=== PATIENT | male | born 1940 | race Hispanic/Latino ===

== ENCOUNTER 2023-04-30 10:03 | Observation (INO) | payer MEDICARE ==
[2023-04-30 10:43] LABS: #Eosinphils 0.1 thou/uL (0.0-0.7); #Monocytes 0.7 thou/uL (0.11-0.59); #Neutrophils 3.5 thou/uL (1.40-6.50); %Basophils 0.6 % (0.0-1.0); %Lymphocytes 32.9 % (21.0-51.0); %Monocytes 10.1 % (0.0-10.0); %Neutrophils 54.1 % (42.0-75.0); Hematocrit 44.3 % (42.0-52.0); Hemoglobin 14.9 g/dL (14.0-18.0); Mean Corpuscular HGB CONC 33.6 g/dL (32.0-36.0); Mean Corpuscular Hemoglobin 29.2 pg (27.0-31.0); Mean Corpuscular Volume 86.7 fl (78.0-98.0); Mean Platelet Volume 10.7 fL (7.4-10.4); Platelet Count 220 10x3/uL (130-400); RBC Distribution Width 13.2 % (11.5-14.5); Red Blood Cell (RBC) Count 5.11 mill/uL (4.70-6.10); White Blood Cell (WBC) Count 6.4 10x3/uL (4.8-10.8)
[2023-04-30] MEDS ORDERED: Ondansetron PF 4 MG/2 ML Vial ONE (10:53)
[2023-04-30] MEDS ORDERED: Meclizine HCl 25 MG TAB ONE (10:53)
[2023-04-30 11:09] LABS: ALT (SGPT) 18 U/L (8-55); AST (SGOT) 18 U/L (5-34); Albumin 4.1 g/dL (3.4-4.8); Alkaline Phosphatase 76 U/L (40-110); Anion Gap 11 mmol/L (10-20); BUN (Urea Nitrogen) 13 mg/dL (8.4-25.7); Bilirubin, Total 0.5 mg/dL (0.2-1.2); Calc. Creatinine Clearance 0 mL/min (70-130); Calcium 8.9 mg/dL (7.8-10.44); Carbon Dioxide 24 mmol/L (23-31); Chloride 105 mmol/L (98-107); Estimated GFR 88; Globulin 2.9 g/dL (2.4-3.5); Glucose 97 mg/dL (83-110); Potassium 3.8 mmol/L (3.5-5.1); Sodium 136 mmol/L (136-145)
[2023-04-30] MEDS ORDERED: Aspirin 325 MG TAB ONE (12:11)
[2023-04-30 12:23] LABS: SARS-CoV-2 NAA Rapid Test Not Detected (NotDetected)
[2023-04-30] MEDS ORDERED: diphenhydrAMINE 50 MG/ML VIAL ONE (14:18)
[2023-04-30] MEDS ORDERED: Ketorolac Tromethamine 30 MG (1 mL) VIAL ONE (14:18)
[2023-04-30] MEDS ORDERED: Acetaminophen 325 MG TAB PO PRN (15:55)
[2023-04-30] MEDS ORDERED: Ondansetron ODT 4 MG TAB PO PRN (15:55)
[2023-04-30] MEDS ORDERED: Loratadine 10 MG TAB PO PRN (15:59)
[2023-04-30] MEDS ORDERED: Meclizine HCl 12.5 MG TAB PO PRN (16:09)
[2023-04-30 18:22] VITALS: BMI 34.2
[2023-04-30] MEDS: guaiFENesin ER 600 MG TAB PO SCH (21:12)
[2023-05-01 05:38] LABS: #Basophils 0.1 thou/uL (0.0-0.2); #Eosinphils 0.2 thou/uL (0.0-0.7); #Monocytes 0.6 thou/uL (0.11-0.59); #Neutrophils 1.9 thou/uL (1.40-6.50); %Basophils 1.1 % (0.0-1.0); %Eosinophils 4.6 % (0.0-10.0); %Lymphocytes 43.3 % (21.0-51.0); %Monocytes 11.6 % (0.0-10.0); Hematocrit 41.5 % (42.0-52.0); Hemoglobin 13.8 g/dL (14.0-18.0); Mean Corpuscular HGB CONC 33.3 g/dL (32.0-36.0); Mean Corpuscular Hemoglobin 29.5 pg (27.0-31.0); Mean Corpuscular Volume 88.7 fl (78.0-98.0); Mean Platelet Volume 10.8 fL (7.4-10.4); Platelet Count 203 10x3/uL (130-400); RBC Distribution Width 13.4 % (11.5-14.5); Red Blood Cell (RBC) Count 4.68 mill/uL (4.70-6.10); White Blood Cell (WBC) Count 4.8 10x3/uL (4.8-10.8)
[2023-05-01 06:07] LABS: Anion Gap 12 mmol/L (10-20); BUN (Urea Nitrogen) 12 mg/dL (8.4-25.7); Calc. Creatinine Clearance 99 mL/min (70-130); Calcium 8.4 mg/dL (7.8-10.44); Carbon Dioxide 23 mmol/L (23-31); Chloride 106 mmol/L (98-107); Estimated GFR 89; Glucose 97 mg/dL (83-110); Potassium 3.9 mmol/L (3.5-5.1); Sodium 137 mmol/L (136-145)
[2023-05-01] MEDS ORDERED: Amlodipine 10 MG TAB PO SCH (09:00)
[2023-05-01] MEDS ORDERED: Losartan 25 MG TAB PO SCH (09:00)
[2023-05-01] MEDS ORDERED: Fluticasone Propionate Nasal Spray 16 gm Bottle NASAL SCH (09:00)
[2023-05-01] MEDS: guaiFENesin ER 600 MG TAB PO SCH (09:34)
[2023-05-01 14:20] VITALS: BP 161/82; TEMP 97.7
== END 2023-05-01 14:30 | disposition home or self-care (01) ==
LOC: ERS 10:03 → ERHOLD 15:32 → 2SW 18:17
PROVIDERS: ADMIT Family Medicine; ATTEND Family Medicine
PROC: B24BZZZ Ultrasonography of Heart with Aorta (ICD-10-PCS; principal; 2023-05-01)
DX: S09.90XA Unspecified injury of head, initial encounter (principal); R55 Syncope and collapse; R42 Dizziness and giddiness; J30.2 Other seasonal allergic rhinitis; H53.9 Unspecified visual disturbance; E78.5 Hyperlipidemia, unspecified; F17.200 Nicotine dependence, unspecified, uncomplicated; I10 Essential (primary) hypertension; Z79.899 Other long term (current) drug therapy; W19.XXXA Unspecified fall, initial encounter
CPT/HCPCS: 0240U; 70450; 70551; 71045; 72125; 80048; 80053; 84484; 85025 ×2; 93005; 93306; 93880; 96374; 96375; 97116; 99285; 36415; G0378; J1200; J1885; J2405